=== PATIENT | male | born 1980 | race African-American/Black ===

== ENCOUNTER 2017-01-27 11:55 | Emergency (ER) | payer MEDICAID ==
[~2017-01-27] VITALS: Ht 175.3 cm; Wt 95.7 kg
[2017-01-27 12:05] VITALS: BP_SYST 134
== END 2017-01-27 13:42 | disposition home or self-care (01) ==
LOC: SED 11:55
DX: K57.90 Diverticulosis of intestine, part unspecified, without perforation or abscess without bleeding (principal); R03.0 Elevated blood-pressure reading, without diagnosis of hypertension
CPT/HCPCS: 99284